=== PATIENT | female | born 1965 | race African-American/Black ===

== ENCOUNTER 2017-04-02 15:59 | Emergency (ER) | payer OTHER ==
[~2017-04-02] VITALS: Ht 160 cm; Wt 108.9 kg
--- NOTE | ~2017-04-02 | CR72 ---
[facility] A Service of [facility] [place] & [facility] RADIOLOGY TEXT RESULTS PATIENT: JAX VELEZ LOCATION: [facility] : 63 UNIT #: [id number] AGE: [address]: Tom Martínez MD SEX: F ORDER DR: [id number] [facility] [address] [place], [place] [address] [id number] MR#: [id number] #: [id number] NAME: JAX VELEZ : 1965 SEX: F STUDY DATE/TIME: 04/02/2017 17:55 UNIT: [facility] ROOM: STUDY DESCRIPTION: CR Chest Single View Portable Attending Physician: Tom Martínez M.D. Ordering Physician: Tayla Field M.D. Primary Care Physician: [facility] MEDICAL IMAGING REPORT This report is preliminary unless electronic signature is present EXAM Portable chest, 04/02. INDICATIONS Shortness of air since Wednesday. COMPARISON 08/24/15. FINDINGS A portable view of the chest was obtained. The heart size and vascularity are normal. Lungs are clear and the bones are normal. IMPRESSION No active disease. Dictated by... Daniel Sawant M.D. THIS IS AN ELECTRONICALLY VERIFIED REPORT Daniel Sawant M.D. at 04/03/2017 7:57 PM FEL/clayton TD: 04/03/2017 14:24 JOB #: [id number] MEDICAL IMAGING REPORT Page 1 of 1 COPY
--- NOTE | ~2017-04-02 | CT16 ---
[facility] A Service of [facility] & [facility] RADIOLOGY TEXT RESULTS PATIENT: JAX VELEZ LOCATION: [facility] : 63 UNIT #: [id number] AGE: [address]: Tom Martínez MD SEX: F ORDER DR: [id number] [facility] [address] [place], [place] [address] [id number] MR#: [id number] Acc #: [id number] NAME: JAX VELEZ : 1965 SEX: F STUDY DATE/TIME: 04/02/2017 20:23 UNIT: [facility] ROOM: STUDY DESCRIPTION: CT Angio Chest for PE Attending Physician: Tom Martínez M.D. Ordering Physician: Tayla Field M.D. Primary Care Physician: [facility] MEDICAL IMAGING REPORT This report is preliminary unless electronic signature is present EXAM CT angiography chest for PE. HISTORY D-dimer 597 at 16:24, 04/02/2017. Elevated white blood cell count 11.2 chest pain, short of air. Hurts to move or breathe, started Wednesday. TECHNIQUE CT pulmonary angiography was performed with administration of intravascular contrast. The initial attempt was nondiagnostic due to poor timing of the contrast bolus. Repeat examination performed. The patient ultimately received 200 mL of Isovue [address] exam was performed with one or more of the following radiation dose reduction techniques: automatic exposure control, adjustment of mA and/or kV according to patient size, and iterative reconstruction. FINDINGS Despite repetition of the examination, opacification of the pulmonary arteries is suboptimal. Comparison is dated 08/24/2015. Thyroid unremarkable. No axillary mediastinal or hilar adenopathy. The heart is normal in size. Trace pleural effusions. These are not drainable fluid collections. The visualized portions of the liver are unremarkable. Patient appears to be status post cholecystectomy. There is no biliary ductal dilatation. Visualized portions of spleen, pancreas, adrenal glands, kidneys, esophagus, stomach, small bowel and colon are unremarkable. There are some mild patchy and band-like densities at the bilateral dependent lung bases probably atelectatic in nature. Areas of mild pneumonitis could be considered. There is mild bronchiectasis at the lung bases. No bronchial wall thickening or mucous plugging. No suspicious nodule. [facility]. [facility] A Service of [facility] RADIOLOGY TEXT RESULTS PATIENT: JAX VELEZ LOCATION: [facility] : 63 UNIT #: [id number] AGE: [address]: Tom Martínez MD SEX: F ORDER DR: Despite repetition, the study is inadequate for full assessment of the pulmonary arteries due to poor opacification of the pulmonary arteries. There is no compelling evidence of central pulmonary embolus. Beyond the lobar pulmonary artery origins, the study is nondiagnostic. If there is ongoing concern for pulmonary thromboembolic disease consider ventilation-perfusion radionuclide lung scan. The aorta is normal in caliber. The visualized aortic branch vessels are patent. Bony structures show no acute abnormality. IMPRESSION 1. Despite repetition of the examination, the study is nondiagnostic for full assessment of the pulmonary arteries due to poor timing of the contrast bolus. There is no clear indication of central pulmonary embolus. Beyond the origin of the lobar pulmonary arteries, the study is nondiagnostic. If there is ongoing clinical concern for pulmonary thromboembolic disease, consider radionuclide ventilation-perfusion lung scan. 2. No evidence of aortic aneurysm or dissection. The visualized aortic branch vessels are patent. 3. There are some patchy and linear/band-like densities in the dependent bilateral lung bases probably atelectatic in nature. Small areas of mild pneumonitis could be considered. Lungs otherwise clear. Note made of mild bronchiectasis at the lung bases. No mucous plugging or bronchial wall thickening. 4. No acute abnormality suggested in the visualized upper abdomen. Dictated by... Vicente Becerril M.D. THIS IS AN ELECTRONICALLY VERIFIED REPORT Vicente Becerril M.D. at 04/03/2017 9:25 PM Марина TD: 04/03/2017 20:39 JOB #: [id number] MEDICAL IMAGING REPORT Page 1 of 1 COPY
--- NOTE | ~2017-04-02 | EKG ---
PATIENT: JAX VELEZ UNIT #: [id number] Ventricular Rate: 94 BPM Atrial Rate: 94 BPM P-R Interval: 162 ms QRS Duration: 86 ms Q-T Interval: 348 ms QTC Calculation(Bezet): 435 ms P [place]: 51 degrees Calculated R [place]: 29 degrees Calculated T [place]: 46 degrees Diagnosis Line: Normal sinus rhythm Diagnosis Line: Normal ECG Diagnosis Line: Diagnosis Line: Confirmed by TAMIKO VAZQUEZ MD ([id number]) on 04/04/2017 Diagnosis Line: 11:01:07 PM INTERPRETING MD: TAYLOR LANDRUM
[~2017-04-02 15:59] MED LIST: ACETAMINOPHEN; AZITHROMYCIN250 MG PO; DIFLUCAN100 MG PO; FLEXERIL10 M1 PO; FLEXERIL10 MG PO; IBUPROFEN100 MG; K-DUR20 ME1 PO; NAPROSYN500 MG PO; NAPROXEN; PREDNISONE PO; VICODIN PO; VOLTAREN75 MG PO
[2017-04-02 16:51] LABS: BASOPHIL# 0.1 X10e3 (0-0.3); BASOPHIL% 1.1 % (0-2.5); EOSINOPHIL# 0.2 X10e3 (0-0.7); EOSINOPHIL% 2.2 % (0.0-7.0); HEMATOCRIT 40.8 % (35.0-45.0); HEMOGLOBIN 13.7 gm/dL (12.0-16.0); LYMPHOCYTE# 4.9 X10e3 (1.0-3.5); LYMPHOCYTE% 44.1 % (17.0-45.0); MEAN CELL VOLUME 85.1 FL (83-96); MEAN CORPUSCULAR HEMOGLOBIN 28.5 PG (28-34); MEAN CORPUSCULAR HGB CONC 33.5 g/dL (30-36); MEAN PLATELET VOLUME 8.6 FL (6.5-11.5); MONOCYTE# 0.8 X10e3 (0-1.0); MONOCYTE% 7.1 % (3.0-12.0); NEUTROPHIL# 5.1 X10e3 (1.5-7.1); NEUTROPHIL% 45.5 % (40-75); PLATELET COUNT 339 X10e3 (140-420); RED CELL DISTRIBUTION WIDTH 14.3 % (11.0-15.5); WHITE BLOOD COUNT 11.2 X10e3 (4.0-10.5)
[2017-04-02 16:52] LABS: DIFF IND NO
[2017-04-02 17:11] LABS: POC - CKMB <1.0 ng/mL (0.0-7.9); POC - TROPONIN <0.05 ng/mL (<=0.05)
[2017-04-02 17:13] LABS: ALKALINE PHOSPHATASE 74 U/L (32-92); ALT (SGPT) 14 U/L (10-40); AST (SGOT) 15 U/L (10-42); BILIRUBIN,TOTAL 0.5 mg/dL (0.2-2.0); BLOOD UREA NITROGEN 8 mg/dL (9-23); BUN/CREATININE RATIO 11.42; CALCIUM SERUM 9.4 mg/dL (8.4-10.2); CARBON DIOXIDE 25 mmol/L (22-31); CHLORIDE 107 mmol/L (100-111); CREATININE SERUM 0.7 mg/dL (0.6-1.4); GLOM FILT RATE Estimated 115.5 mL/min (>60); GLUCOSE FASTING 95 mg/dL (70-110); POTASSIUM 3.6 mmol/L (3.5-5.1); PROTEIN TOTAL SERUM 7.3 g/dL (6.0-8.3); SODIUM 139 mmol/L (135-145)
[2017-04-02 17:35] LABS: BILIRUBIN, DIRECT <0.1 mg/dL (0.0-0.2); BILIRUBIN,INDIRECT 0.4 mg/dL (0.0-0.9)
[2017-04-02 18:36] LABS: POC - CKMB 1.2 ng/mL (0.0-7.9); POC - TROPONIN <0.05 ng/mL (<=0.05)
== END 2017-04-03 00:45 | disposition short-term general hospital (02) ==
LOC: CED 15:59
PROVIDERS: Emergency Medicine
DX: R09.1 Pleurisy (principal)
CPT/HCPCS: 36415; 71010; 71275; 80048; 80076; 82553; 84484; 85025; 85379; 93005; 94640; 96374; 99285; J1885; Q9967